=== PATIENT | male | born 1995 | race American Indian/Alaskan Native ===

== ENCOUNTER 2020-12-07 21:13 | Emergency (ER) | payer SELFPAY ==
[2020-12-07] MEDS ORDERED: SODIUM CHLORIDE 0.9% 1000 ML 1,000 ML IV ONE (21:24)
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
[2020-12-07 21:35] LABS: Hematocrit 44.6 % (35.5-45.6); Hemoglobin 14.1 gm/dl (11.8-15.2); Mean Corpuscular HGB Conc 32 % (32-34); Mean Corpuscular Volume 83 fl (84-94); Platelet Count 198 K/mm3 (140-440); Red Blood Count 5.38 M/mm3 (3.65-5.03); Red Cell Distribution Width 14.4 % (13.2-15.2)
[2020-12-07 21:44] LABS: INR 0.89 (0.87-1.13)
[2020-12-07 21:45] LABS: Partial Thromboplastin Time 27.7 Sec. (24.2-36.6)
[2020-12-07 21:58] LABS: BUN/Creatinine Ratio 7; Blood Urea Nitrogen 6 mg/dL (9-20); Calcium 8.9 mg/dL (8.4-10.2); Hemolysis Index 11
[2020-12-07 22:22] VITALS: BP 126/83
[2020-12-08 00:27] LABS: Total Cells Counted 100
[2020-12-08 00:28] LABS: Platelet Estimate Consistent w Auto; RBC Morphology Normal
== END 2020-12-07 22:35 | disposition hospice, inpatient (51) ==
LOC: ED 21:13
DX: S11.94XA Puncture wound with foreign body of unspecified part of neck, initial encounter (principal); F12.90 Cannabis use, unspecified, uncomplicated; W26.0XXA Contact with knife, initial encounter; Y93.89 Activity, other specified; Y92.89 Other specified places as the place of occurrence of the external cause; Y99.8 Other external cause status
CPT/HCPCS: 36415; 80048; 85007; 85025; 85610; 85730; 86850; 86900; 86901; 96360; 99285; J7030